=== PATIENT | male | born 1985 | race African-American/Black ===

== ENCOUNTER 2020-07-21 09:10 | Emergency (ER) | payer MEDICAID, OTHER ==
[~2020-07-21] VITALS: Ht 177.8 cm; Wt 96.0 kg
[2020-07-21] MEDS ORDERED: ONDANSETRON HCL 4MG/2ML INJ IV STA (09:41)
[2020-07-21] MEDS ORDERED: MORPHINE SULFATE 4 MG/ML CPJ (NOT FOR IM USE) IV STA (09:41)
[2020-07-21] MEDS ORDERED: SODIUM CHLORIDE 0.9% 1,000 ML IV ONE (09:45)
[2020-07-21 10:10] LABS: CHLORIDE 98 mEq/L (98-107)
[2020-07-21 10:14] LABS: INR 1.2; PROTHROMBIN TIME 12.7 sec (9.6-11.0)
[2020-07-21 10:15] LABS: BASOPHILS % 0.4 % (0.0-2.0); EOSINOPHILS % 0.1 % (0.0-5.0); HEMATOCRIT. 47.3 % (42.0-52.0); HEMOGLOBIN. 15.8 g/dL (14.0-18.0); LYMPHOCYTES % 11.4 % (20.0-50.0); MEAN CORPUSCULAR HEMOGLOBIN 27.2 pg (28.0-32.0); MEAN CORPUSCULAR VOLUME 81.3 fL (80.0-94.0); MEAN PLATELET VOLUME 7.7 fl (7.4-10.4); MONOCYTES % 7.5 % (2.0-8.0); NEUTROPHILS % 80.6 % (40.0-76.0); PLATELET 333 x1000/uL (130-400); RED BLOOD CELL COUNT 5.82 mill/uL (4.7-6.1); RED CELL DISTRIBUTION WIDTH 14.4 % (11.6-14.6)
[2020-07-21] MEDS ORDERED: FAMOTIDINE 20MG/2ML VIAL IV ONE (11:15)
[2020-07-21 14:13] LABS: CLARITY URINE CLEAR (CLEAR); COLOR URINE YELLOW (YELLOW); KETONES URINE 3+ (NEGATIVE); LEUKOCYTE ESTERASE URINE TRACE (NEGATIVE); NITRITE URINE NEGATIVE (NEGATIVE); OCCULT BLOOD URINE NEGATIVE (NEGATIVE); PROTEIN URINE TRACE (NEGATIVE); SPECIFIC GRAVITY URINE 1.031 (1.005-1.030)
[2020-07-21] MEDS ORDERED: FAMO40TA7 MT (14:53)
[2020-07-21 15:30] VITALS: BP 117/88
== END 2020-07-21 15:35 | disposition home or self-care (01) ==
LOC: ER 09:10
DX: R10.84 Generalized abdominal pain (principal); Z85.9 Personal history of malignant neoplasm, unspecified; Z88.0 Allergy status to penicillin
CPT/HCPCS: 36415; 74176; 80053; 81003; 83690; 85025; 85610; 93005; 96361; 96374; 96375; 99285; J2270; J2405; J3490; J7030

== ENCOUNTER 2020-12-19 07:37 | Emergency (ER) | payer OTHER ==
[~2020-12-19] VITALS: Ht 180.3 cm; Wt 100.0 kg
[~2020-12-19 07:37] MED LIST: FAMO40TA7 MT
[2020-12-19] MEDS ORDERED: ONDANSETRON HCL 4MG/2ML INJ IV NR (08:28)
[2020-12-19] MEDS ORDERED: FAMOTIDINE 20MG/2ML VIAL IV NR (08:30)
[2020-12-19] MEDS ORDERED: SODIUM CHLORIDE 0.9% 1,000 ML IV ONE (08:30)
[2020-12-19 09:02] LABS: EOSINOPHILS % 3.8 % (0.0-5.0); HEMATOCRIT. 44.3 % (42.0-52.0); HEMOGLOBIN. 15.2 g/dL (14.0-18.0); LYMPHOCYTES % 17.5 % (20.0-50.0); MEAN CORPUSCULAR HEMOGLOBIN 28.2 pg (28.0-32.0); MEAN CORPUSCULAR VOLUME 82.5 fL (80.0-94.0); MEAN PLATELET VOLUME 7.3 fl (7.4-10.4); MONOCYTES % 5.7 % (2.0-8.0); PLATELET 352 x1000/uL (130-400); RED BLOOD CELL COUNT 5.37 mill/uL (4.7-6.1); RED CELL DISTRIBUTION WIDTH 14.7 % (11.6-14.6)
[2020-12-19] MEDS ORDERED: MORPHINE SULFATE 4 MG/ML CPJ (NOT FOR IM USE) IV ONE ×2 (09:15→13:15)
[2020-12-19 09:18] LABS: CHLORIDE 109 mEq/L (98-107)
[2020-12-19] MEDS ORDERED: KETOROLAC 30MG/ML VIAL IV ONE (10:45)
[2020-12-19] MEDS ORDERED: MAGNESIUM/ALUMINUM HYDROXIDE/SIMETHICONE 30ML UDC PO ONE (12:45)
[2020-12-19] MEDS ORDERED: VISCOUS LIDOCAINE 2% 15 ML UDC PO ONE (12:45)
[2020-12-19] MEDS: TRAMADOL 50MG TABLET PO ONE ×2 (12:51→12:59)
[2020-12-19] MEDS ORDERED: METOCLOPRAMIDE HCL 10MG/2ML VIAL IV ONE (13:15)
[2020-12-19 16:40] VITALS: BP 126/62
== END 2020-12-19 17:33 | disposition short-term general hospital (02) ==
LOC: ER 07:37
DX: K80.50 Calculus of bile duct without cholangitis or cholecystitis without obstruction (principal); R19.7 Diarrhea, unspecified; R11.2 Nausea with vomiting, unspecified; Z85.6 Personal history of leukemia; Z88.0 Allergy status to penicillin
CPT/HCPCS: 36415; 76705; 80053; 83690; 85025; 93005; 96361; 96374; 96375; 96376; 99285; J1885; J2270; J2405; J2765; J3490; Z7610

== ENCOUNTER 2025-04-02 21:29 | Emergency (ER) | payer BC, OTHER ==
[~2025-04-02] VITALS: Ht 172.7 cm; Wt 93.3 kg
[2025-04-02 21:45] VITALS: O2SAT 99
[2025-04-02] MEDS: ONDANSETRON HCL 4MG/2ML INJ IV ONE (22:33)
[2025-04-02] MEDS: MAGNESIUM/ALUMINUM HYDROXIDE/SIMETHICONE 30ML UDC PO ONE (22:33)
[2025-04-02] MEDS: VISCOUS LIDOCAINE 2% 15 ML UDC MM ONE (22:33)
[2025-04-02] MEDS: KETOROLAC 15MG/ML VIAL IV ONE (22:33)
[2025-04-02] MEDS: AZTREONAM 1 G in DEXTROSE 5% WATER 50 ML IV SCH (23:11)
[2025-04-02 23:29] LABS: BASOPHILS % 1.0 % (0.0-2.0); EOSINOPHILS % 0.0 % (0.0-5.0); HEMATOCRIT. 47.5 % (42.0-52.0); HEMOGLOBIN. 15.7 g/dL (14.0-18.0); LYMPHOCYTES % 11.9 % (20.0-50.0); MEAN PLATELET VOLUME 7.6 fl (7.4-10.4); MONOCYTES % 9.7 % (2.0-8.0); NEUTROPHILS % 77.4 % (40.0-76.0); PLATELET 388 x1000/uL (130-400); RED BLOOD CELL COUNT 5.75 mill/uL (4.7-6.1); RED CELL DISTRIBUTION WIDTH 14.8 % (11.6-14.6)
[2025-04-02] MEDS: SODIUM CHLORIDE 0.9% (SEPSIS BOLUS) IV ONE (23:35)
[2025-04-02 23:43] LABS: CREATININE 1.4 mg/dL (0.6-1.3); UREA NITROGEN BLOOD 11 mg/dL (9-23)
[2025-04-02 23:45] LABS: ASPARTATE AMINOTRANSFERASE 36 IU/L (<34); BILIRUBIN DIRECT 0.2 mg/dL (<=3.0)
[2025-04-02 23:46] LABS: BILIRUBIN TOTAL 0.6 mg/dL (0.1-1.0); PROTEIN TOTAL 8.1 g/dL (6.0-8.3)
[2025-04-02] MEDS: VANCOMYCIN 1G PREMIX 200 ML IV ONE (23:57)
[2025-04-03] MEDS: IOHEXOL-300 100 ML BOTTLE ONE (01:14)
[2025-04-03] MEDS: MORPHINE SULFATE 4 MG/ML INJ (FOR IV/IM USE) IV ONE (02:12)
[2025-04-03 02:20] LABS: CLARITY URINE CLEAR (CLEAR); COLOR URINE YELLOW (YELLOW); GLUCOSE URINE NEGATIVE (NEGATIVE); KETONES URINE NEGATIVE (NEGATIVE); LEUKOCYTE ESTERASE URINE NEGATIVE (NEGATIVE); NITRITE URINE NEGATIVE (NEGATIVE); OCCULT BLOOD URINE NEGATIVE (NEGATIVE); PH URINE 5.5 (4.5-8.0); PROTEIN URINE 1+ (NEGATIVE); SPECIFIC GRAVITY URINE 1.043 (1.005-1.030); UROBILINOGEN URINE 0.2 E.U./dL (0.2-1.0)
[2025-04-03 02:35] LABS: *AMPHETAMINES SCREEN URINE NEGATIVE (NEGATIVE); *BARBITURATES SCREEN URINE NEGATIVE (NEGATIVE); *BENZODIAZEPINES SCREEN URINE NEGATIVE (NEGATIVE)
[2025-04-03 02:36] LABS: *COCAINE SCREEN URINE NEGATIVE (NEGATIVE); CANNABINOID URINE SCREEN PRESUMPTIVE POSITIVE (NEGATIVE); ECSTASY MDMA SCREEN URINE NEGATIVE (NEGATIVE); METHADONE URINE SCREEN NEGATIVE (NEGATIVE); OPIATES URINE SCREEN NEGATIVE (NEGATIVE); PHENCYCLIDINE URINE SCREEN NEGATIVE (NEGATIVE)
[2025-04-03 04:21] LABS: BACTERIA URINE TRACE; MUCUS URINE 2+ /lpf (NONE/TRACE); RBC URINE 0-2 /hpf (0-2); SQUAMOUS EPITHELIAL CELL URINE NONE SEEN /lpf (RARE/1+); WBC URINE 0-2 /hpf (0-2)
[2025-04-03] MEDS ORDERED: ACETAMINOPHEN 325MG TABLET PO PRN ×2 (05:15)
[2025-04-03] MEDS ORDERED: CLONIDINE 0.1MG TABLET PO PRN (05:15)
[2025-04-03] MEDS ORDERED: IPRATROPIUM/ALBUTEROL 0.5-3(2.5)MG/3ML NEB HHN PRN (05:15)
[2025-04-03] MEDS ORDERED: ONDANSETRON HCL 4MG/2ML INJ IV PRN (05:15)
[2025-04-03] MEDS ORDERED: DOCUSATE SODIUM 100MG CAPSULE PO PRN (05:15)
[2025-04-03] MEDS ORDERED: GUAIFENESIN 200MG/10ML SUGAR FREE UDC PO PRN (05:15)
[2025-04-03] MEDS ORDERED: MAGNESIUM/ALUMINUM HYDROXIDE/SIMETHICONE 30ML UDC PO PRN (05:15)
[2025-04-03] MEDS ORDERED: AZTREONAM 1 G in DEXTROSE 5% WATER 50 ML IV SCH (05:15)
[2025-04-03] MEDS: LACTATED RINGERS 1,000 ML IV SCH (05:55)
[2025-04-03 06:00] VITALS: BP 130/78; PULSE 89; RESP 12; TEMP 36.7; O2SAT 97
[2025-04-03] MEDS ORDERED: LEVOFLOXACIN 750MG PREMIX 150 ML IV SCH (06:00)
[2025-04-03] MEDS ORDERED: METRONIDAZOLE 500 MG PREMIX 100 ML IV SCH (06:00)
[2025-04-03] MEDS: LEVOFLOXACIN 750MG PREMIX 150 ML IV SCH (06:03)
[2025-04-03 07:02] LABS: PHOSPHORUS 2.1 mg/dL (2.5-4.9)
[2025-04-03] MEDS ORDERED: PANTOPRAZOLE SODIUM 40 MG/VIAL IV SCH (09:00)
== END 2025-04-03 06:47 | disposition short-term general hospital (02) ==
LOC: ER 21:58 → EDBEDREQ 04-03 03:13 → EDBEDREQDT 04-03 03:13 → EDBEDREQTM 04-03 03:13 → ER 04-03 06:47 → CMPBEDREQ 04-03 08:48
DX: R10.13 Epigastric pain (principal); R11.2 Nausea with vomiting, unspecified; R19.7 Diarrhea, unspecified; F12.90 Cannabis use, unspecified, uncomplicated; Z79.899 Other long term (current) drug therapy; Z87.19 Personal history of other diseases of the digestive system; Z88.0 Allergy status to penicillin
CPT/HCPCS: 80076; 80048; 80320; 83605 ×2; 83690; 85025; 87040; 36415 ×2; 84145; 76705; 93005; 96367 ×2; 96365; 96366; 96375 ×2; 99291; 80305; 81003; 83735; 84100; 87086; 71045; 74177; J3490; J1885; J2405; J3373; J7060; J7030; Z7610; Q9967; J2270; J1956; G0480